=== PATIENT | male | born 1990 ===

== ENCOUNTER 2022-10-19 14:57 | Outpatient (CLI) | payer OTHER, SELFPAY | END 2022-10-19 14:58 | disposition home or self-care (01) | PROVIDERS: PCP Family Medicine; Visit Provider Family Medicine | DX: Z00.00 Encounter for general adult medical examination without abnormal findings (principal); E55.9 Vitamin D deficiency, unspecified; R73.03 Prediabetes | CPT/HCPCS: 80048; 80061; 82306 ==